=== PATIENT | female | born 1995 | race Caucasian/White ===

== ENCOUNTER 2017-02-08 05:17 | Emergency (ER) | payer OTHER ==
[~2017-02-08] VITALS: Ht 177.8 cm; Wt 61.4 kg
[2017-02-08 05:26] VITALS: BP 120/80; PULSE 97; RESP 16; O2SAT 99
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
[2017-02-08] MEDS ORDERED: cefTRIAXone Inj 250 MG, Lidocaine PF 1% Inj 0.9 ML in Syringe 1 EACH IM ONE ×2 (08:50→09:05)
[2017-02-08] MEDS ORDERED: Ondansetron 8 mg ODT Tablet PO ONE (08:50)
[2017-02-08 10:11] VITALS: BP 111/63; PULSE 88; RESP 20; O2SAT 98
[2017-02-09 10:09] LABS: Hepatitis A Antibody IgM Negative (Negative); Hepatitis B Core Antibody IgM Negative (Negative)
== END 2017-02-08 09:35 ==
LOC: SED 05:17
DX: T74.21XA Adult sexual abuse, confirmed, initial encounter (principal); Y07.9 Unspecified perpetrator of maltreatment and neglect; Y93.89 Activity, other specified; Y92.89 Other specified places as the place of occurrence of the external cause; Y99.8 Other external cause status
CPT/HCPCS: 36415; 81025; 86705; 86709; 87340; 87341; 87491; 87591; 96372; 99284; G0433; G0472; J0696